=== PATIENT | female | born 1940 | race Two or more races ===

== ENCOUNTER 2023-02-19 01:07 | Emergency (ER) | payer OTHER ==
[~2023-02-19] VITALS: Ht 162.6 cm; Wt 63.5 kg
--- NOTE | 2023-02-19 01:20 | NUR ---
MARIA ALEJANDRA FROM [facility]. PATIENT HAS SWELLING AND REDNESS ON LEFT HAND AND FOREARM SINCE AM. PATIENT IS AAOX1, URDU SPEAKING, WITH LT SIDE HEMIPLEGIA. PLACED COMFORTABLY IN BED. VITALS CHECKED.
--- NOTE | 2023-02-19 01:58 | NUR ---
IV MARCO ANTONIO G18 ON RIGHT AC. BLOOD DRAWN AND SENT TO LAB
[2023-02-19] MEDS ORDERED: CEFEPIME 1 GM in IV D5W 50 ML IV ONE (02:00)
[2023-02-19] MEDS ORDERED: VANCOMYCIN 1 GM in IV D5W 250 ML IV ONE (02:00)
[2023-02-19] MEDS ORDERED: CEFEPIME 1 GM VIAL ONE (02:05)
[2023-02-19] MEDS ORDERED: VANCOMYCIN 1 GM VIAL ONE (02:06)
[2023-02-19 02:21] LABS: BASOPHILS # (AUTO) 0.2 K/uL (0.0-0.2); BASOPHILS % (AUTO) 3.2 % (0.0-2.0); EOSINOPHILS % (AUTO) 0.6 % (0.0-6.0); HEMATOCRIT 41 % (33-45); HEMOGLOBIN 13.2 g/dL (11.5-14.8); LYMPHOCYTES % (AUTO) 13.3 % (20.0-44.0); MEAN CORPUSCULAR HGB CONC 32 g/dl (31.0-36.0); MEAN CORPUSCULAR VOLUME 97 fL (82-100); MONOCYTES # (AUTO) 0.5 K/uL (0.1-1.30); MONOCYTES % (AUTO) 5.9 % (2.0-12.0); PLATELET COUNT (AUTO) 186 K/uL (150-450); RED BLOOD CELL COUNT(AUTO) 4.22 MIL/uL (4.0-5.2); WHITE BLOOD COUNT (AUTO) 7.9 K/uL (4.3-11.0)
[2023-02-19 02:29] LABS: POTASSIUM 4.6 mmol/L (3.5-5.1)
[2023-02-19 02:48] LABS: C-REACTIVE PROTEIN 12.8 mg/dL (0.0-0.9)
--- NOTE | 2023-02-19 04:05 | NUR ---
covid swab collected and sent to lab.
--- NOTE | 2023-02-19 07:19 | NUR ---
REPORT GIVEN TO VALE BURLESON FOR CONTINUITY OF CARE.
--- NOTE | 2023-02-19 08:19 | NUR ---
ACCEPTED AT [facility] UNDER DR TOSCANO NUMBER FOR REPORT, , GOING TO [facility] [id number] [facility] ETA [id number]
--- NOTE | 2023-02-19 10:24 | NUR ---
Report given to VALE Go at [facility]
--- NOTE | 2023-02-19 11:28 | NUR ---
Patient transported from hospital via stretcher accompanied by 2 courtroom deputy. Written and verbal after care instructions given. Patient stable at time of discharge.
[2023-02-19 11:30] VITALS: BP 148/73
== END 2023-02-19 11:31 | disposition short-term general hospital (02) ==
LOC: ER 01:14
DX: L03.114 Cellulitis of left upper limb (principal); I10 Essential (primary) hypertension; E11.9 Type 2 diabetes mellitus without complications; E78.5 Hyperlipidemia, unspecified; G81.90 Hemiplegia, unspecified affecting unspecified side; Z20.822 Contact with and (suspected) exposure to COVID-19
CPT/HCPCS: 99284; 96365; 96367; 87426; 73110; 85025; 80048; 87040 ×2; 83605; 85652; 36415; 86140; J3370; J7060 ×2; J0692 ×2; C9803